=== PATIENT | female | born 1955 | race Caucasian/White ===

== ENCOUNTER → 2019-06-15 09:20 | Outpatient (BNVA) | payer MEDICARE, BC, SELFPAY | PROVIDERS: Family Provider Family Medicine; PCP Family Medicine; Visit Provider Otolaryngology | DX: R04.0 Epistaxis (principal) | CPT/HCPCS: 99212; 99214 ==

== ENCOUNTER 2020-01-18 11:04 | Outpatient (CLI) | payer MEDICARE, BC, SELFPAY ==
--- NOTE | 2020-01-18 11:08 | US_ITS ---
WS: [id number] ULTRASOUND PELVIS TECHNIQUE: Transabdominal and transvaginal. ULTRASOUND PELVIS TECHNIQUE: Transabdominal. CLINICAL INFORMATION: POSTMENOPAUSAL BLEEDING COMPARISON: None. FINDINGS: Cervix measures 3.5 cm Uterus Orientation: Anteverted. Size: 8.33,8.46 cm x 3.3 cm x 2.8 cm. Masses: None. Cervix: 3.5 cm. Endometrium: Abnormally thickened and heterogeneous Endometrium thickness: 1.4 cm. Adnexa: Neither ovary visualized Free fluid: None. Other findings: None. US/US pelvic with transvaginal IMPRESSION: 1. Thickened heterogeneous endometrium measuring 13.6 mm abnormal in a postmen opausal patient. Findings suspicious for neoplasia. Recommend further evaluatio n with hysteroscopy. 2. Neither ovary is visualized. 3. No free fluid in the cul-de-sac.
== END 2020-01-18 11:05 | disposition home or self-care (01) ==
LOC: RAD 11:04
PROVIDERS: PCP Family Medicine; Visit Provider Family Medicine
DX: N95.0 Postmenopausal bleeding (principal); R93.89 Abnormal findings on diagnostic imaging of other specified body structures
CPT/HCPCS: 76830; 76856

== ENCOUNTER → 2020-01-28 16:20 | Outpatient (BNVA) | payer MEDICARE, BC, SELFPAY | PROVIDERS: PCP Family Medicine; Visit Provider Obstetrics & Gynecology | DX: N95.0 Postmenopausal bleeding (principal) | CPT/HCPCS: 88305 ==

== ENCOUNTER 2020-02-02 13:12 | Outpatient (CLI) | payer MEDICARE, BC, SELFPAY ==
--- NOTE | 2020-02-02 13:18 | MM_ITS ---
WS: [id number] BILATERAL DIGITAL SCREENING MAMMOGRAPHY WITH CAD CLINICAL INFORMATION: SCREENING HISTORY: Screening mammogram. No current complaints. COMPARISON: April 22, 2018 TECHNIQUE: Bilateral CC and MLO views. FINDINGS: Scattered fibroglandular densities bilaterally. No suspicious focal mass, asymmetry, calcifications, or architectural distortion. No evidence of malignancy. Vascular calcification. Stable intramammary l ymph node upper outer left breast. MM/[id number] IMPRESSION: BI-RADS: 2-Benign FOLLOW UP: 1 Year Follow-up Recommend return to annual screening mammography.
== END 2020-02-02 13:13 | disposition home or self-care (01) ==
LOC: RADSHAW 13:17
PROVIDERS: PCP Family Medicine; Visit Provider Family Medicine
DX: Z12.31 Encounter for screening mammogram for malignant neoplasm of breast (principal)
CPT/HCPCS: 77067

== ENCOUNTER → 2020-03-04 13:00 | Outpatient (BNVA) | payer MEDICARE, BC, SELFPAY | PROVIDERS: PCP Family Medicine; Visit Provider Obstetrics & Gynecology | DX: Z11.59 Encounter for screening for other viral diseases (principal) | CPT/HCPCS: 87635 ==

== ENCOUNTER 2020-03-09 05:40 | Day surgery (SDC) | payer MEDICARE, BC, SELFPAY ==
[2020-03-07 10:10] VITALS: BMI 33.3
--- NOTE | 2020-03-07 10:41 | ANES.PREANE2 ---
Pre-Anesthetic Assessment Pre-Anesthetic Assessment: Height/Weight: Height 1.57 m Weight 82.554 kg Preop Diagnosis: Postmenopausal bleeding, endometrial polyp Proposed Procedure: Operation Date: 03/09/20 07:00 Proposed Procedures p Hysteroscopy with polypectomy and paracervical block 97882 51461 N95.0 N84.0(Not Applicable) - Malcolm Hancock MD s Dilation And Curettage (D&C) with Myosure 25437 N95.0 N84.0(Not Applicable) - Malcolm Hancock MD Familial anesthetic complications: None Was Beta Boom taken within 24 hours: N/A Social: Social History: No alcohol and No tobacco Exam: Pre-Anes Outpt Exam: alert, oriented x 3, clear to auscultation bilaterally and regular rate & rhythm Airway: Cervical ROM: WNL MP: 3 Dentition: False Pulmonary: Comments: hx bronchitis CV/HEM: CV/HEM: HTN GI: GI: GERD Anesthetic Plan: ASA status: 2 Anesthesia: MAC Risk of > 500 ml blood loss (7ml/kg in children): No PFSH Anesthesia PFSH: Medical History Endometrial polyp Post-menopausal bleeding Family History Family/Other Diabetes maternal aunt Other No pertinent family history Denies family history of Clotting disorder Hyperlipidemia Anesthesia complication Bleeding disorder Hypertension Stroke Social History (Updated 03/07/20 @ 07:53 by Giovanna Dickerson RN) Smoking and tobacco status: former smoker Quit status (tobacco): has quit using tobacco Former quit date comment: 40 years ago Alcohol intake: current Alcohol intake frequency: few times a week Alcohol type: beer Substance/Drug Use: never Data Anesthesia CBC & Chem 7: 03/07/20 10:25 03/07/20 10:25 Cardiac Studies: No Data to Display
[2020-03-07 10:43] LABS: Basophils # 0.1 10^3/uL (0.0-0.1); Basophils % 0.8 %; Eosinophils # 0.2 10^3/uL (0.0-0.8); Eosinophils % 2.5 %; Hematocrit 43.4 % (37.0-47.0); Lymphocytes # 3.5 10^3/uL (0.8-4.8); Lymphocytes % 45.1 %; Mean Corpuscular HGB Conc 32.3 g/dL (30.0-36.0); Mean Corpuscular Hemoglobin 30.6 pg (28.0-34.0); Mean Corpuscular Volume 94.8 fL (81-99); Mean Platelet Volume 11.1 fL (7.4-10.4); Monocytes # 0.6 10^3/uL (0.2-0.9); Monocytes % 8.2 %; Neutrophils # 3.32 10^3/uL (1.8-7.7); Neutrophils % 43.1 %; Nucleated Red Blood Cells % 0 %; Platelet Count 322 10^3/cmm (130-400); Red Blood Count 4.58 10^6/uL (4.1-5.3); Red Cell Distribution Width 11.7 % (12.1-15.1); White Blood Count 7.7 10^3/uL (4.0-10.0)
[2020-03-07 10:44] LABS: Add Urine Microscopic? NO
[2020-03-07 11:05] LABS: Urine Color Yellow (Yellow)
[2020-03-07 11:06] LABS: Alanine Aminotransferase 45 U/L (0-33); Albumin Level 4.5 g/dL (3.5-5.2); Alkaline Phosphatase 82 IU/L (35-105); Anion Gap 16.8 (5-19); Aspartate Amino Transferase 35 U/L (0-32); Bilirubin Urine Neg (Negative); Blood Urea Nitrogen 10 mg/dL (8-23); Blood Urine Neg (Negative); Calcium 9.9 mg/dL (8.5-10.5); Carbon Dioxide 25 mmol/L (22-29); Chloride 104 mmol/L (98-107); Globulin 3.1 g/dL (1.3-4.6); Glomerular Filtration Rate 123.4 mL/min (90-130); Glucose 101 mg/dL (65-115); Glucose Urine UA Norm (Normal); Ketones Urine Negative (Negative); Leukocyte Esterase Urine Negative (Negative); Nitrate Urine Negative (Negative); Osmolality Calculated 291 mOsm/kg (285-295); Potassium 4.8 mmol/L (3.5-5.1); Protein Urine Neg (Negative); Sodium 141 mmol/L (136-145); Total Bilirubin 0.3 mg/dL (0.15-1.2); Total Protein 7.6 g/dL (6.6-8.7); Urine Appearance Clear (CLEAR); Urobilinogen Urine Norm (Negative); pH Urine 6 (5-7)
[2020-03-09 06:12] VITALS: BP 160/85; PULSE 76; RESP 18; TEMP 36.3; O2SAT 97
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
[2020-03-09] MEDS: scopolamine 1.5 Patch 1 PATCH TRANSDERMA (06:26)
[2020-03-09] MEDS: lactated ringers 500 ML IV (06:26)
--- NOTE | 2020-03-09 06:55 | W.PM.OPSUD ---
Surgery/Procedure H&P Update DATE OF PROCEDURE: March 09, 2020 DATE H&P PERFORMED: 03/07/20 H&P UPDATE INFORMATION: I have reviewed H&P completed within last 30 days, I have examined patient prior to procedure and No changes to prior documentation PREOP DIAGNOSIS: Postmenopausal bleeding, endometrial polyp PLANNED PROCEDURE: Operation Date: 03/09/20 07:00 Proposed Procedures p Hysteroscopy with polypectomy and paracervical block 43225 18854 N95.0 N84.0(Not Applicable) - Malcolm Hancock MD s Dilation And Curettage (D&C) with Myosure 97634 N95.0 N84.0(Not Applicable) - Malcolm Hancock MD
--- NOTE | 2020-03-09 07:49 | PM.OP ---
Operative Report Date of procedure: March 09, 2020 Pre-op Diagnosis: Postmenopausal bleeding, endometrial polyp Post-op diagnosis: same Post-op Findings: endometrial polyp and atrophic endometrium Procedure Done: hysteroscopic polypectomy Specimens removed/disposition: endometrial polyp Pathology: endometrial polyps Surgeon: Malcolm Hancock M.D. Estimated blood loss (mL): 5 IV fluids (mL): 500 Urine output (mL): 300 Complications: none Condition: stable Disposition: PACU Brief History: 64-year-old female with postmenopausal bleeding Procedure: After informed consent, the risks included but were not limited to bleeding, infection, injury to internal organs. The patient was counseled on a possible laparotomy and on the potential need for hysterectomy. The patient expressed understanding of the risks involved, all questions were answered, and the patient consented to the procedure. The patient was taken to the operating room where general anesthesia was administered. She was placed in the dorsal lithotomy position and prepped and draped in sterile fashion. A time out procedure was performed. The patient was examined under anesthesia and found to have a normal uterus with normal adnexa. A sterile weight speculum was placed in the vagina. The uterus was then gently sounded to 7 cm, and the cervix was dilated. The 0 degrees MyoSure hysteroscope was advanced gently to the uterine fundus while visualizing the monitor. Survey of the uterine cavity showed: fundal endometrial polyp, the fundus shows atrophic endometrium; left ostium was visualized, and lateral wall with atrophic endometrium; right ostium visualized, and lateral wall with atrophic endometrium; anterior and posterior meraz are with atrophic endometrium; endocervical canal is normal. The MyoSure device was advanced and the direct visualization the polyp was morcellated without complication. At the end of morcellation the fluid deficit was 200 mL and was estimated at approximately 50 mL were on the floor. There was minimal bleeding noted and the tenaculum removed with goad hemostasis noted. The patient tolerated the procedure well. The patient was taken to the recovery area in stable condition.
[2020-03-09 07:55] VITALS: BP 96/61; PULSE 105; RESP 20; TEMP 36.1; O2SAT 97
[2020-03-09 08:00] VITALS: BP 112/68; PULSE 99; RESP 14; O2SAT 95
[2020-03-09 08:05] VITALS: BP 96/57; PULSE 96; RESP 16; TEMP 36.9; O2SAT 96
[2020-03-09 08:11] VITALS: BP 123/76; PULSE 96; RESP 18; TEMP 36.4; O2SAT 98
[2020-03-09 08:35] VITALS: BP 122/73; PULSE 88; RESP 18; O2SAT 97
--- NOTE | 2020-03-09 08:50 | ANE.PACU2 ---
Inpatient post-anesthesia follow up: Airway intact: Yes Vital signs: Temperature 97.6 F Pulse Rate 88 Respiratory Rate 18 Blood Pressure 122/73 Pulse Oximetry 97 Oxygen Delivery Me thod Room Air Oxygen Flow Rate Fraction of Inspir ed Oxygen Hydration adequate: Yes Nausea and vomiting: No Pain level: 2 Mental status: Baseline
== END 2020-03-09 08:50 | disposition home or self-care (01) ==
PROVIDERS: PCP Family Medicine; Visit Provider Obstetrics & Gynecology
PROC: 0UJD8ZZ Inspection of Uterus and Cervix, Via Natural or Artificial Opening Endoscopic (ICD-10-PCS; CPT 58555; principal; 2020-03-09 07:00)
PROC: (CPT 58120; 2020-03-09 07:00)
DX: N95.0 Postmenopausal bleeding (principal); N84.0 Polyp of corpus uteri; Z87.891 Personal history of nicotine dependence
CPT/HCPCS: 58558; 12345; 36415; 80053; 81003; 85025; 86850; 86900; 88305; J0690; J1100; J1885; J2405; J3010; J3490

== ENCOUNTER 2021-06-12 11:26 | Outpatient (CLI) | payer MEDICARE, BC, SELFPAY ==
--- NOTE | 2021-06-12 11:35 | MM_ITS ---
WS: [id number] BILATERAL SCREENING DIGITAL MAMMOGRAM WITH CAD HISTORY: SCREENING COMPARISON: 02/02/2020, 04/22/2018 Bilateral CC and MLO views submitted. Computer aided detection analyzed. Breast composition: There are scattered areas of fibroglandular density. No suspicious masses, microc alcifications or architectural distortion. Bilateral vascular calcifications. Bilateral intramammary lymph nodes in the upper-outer quadrants. MM/[id number] IMPRESSION: BI-RADS: 2-Benign FOLLOW UP: 1 Year Follow-up
== END 2021-06-12 11:27 | disposition home or self-care (01) ==
LOC: RADSHAW 11:33
PROVIDERS: PCP Family Medicine; Visit Provider Family Medicine
DX: Z12.31 Encounter for screening mammogram for malignant neoplasm of breast (principal)
CPT/HCPCS: 77067

== ENCOUNTER 2022-08-30 10:32 | Outpatient (CLI) | payer MEDICARE, BC, SELFPAY ==
--- NOTE | 2022-08-30 10:58 | MM_ITS ---
WS: [id number] BILATERAL SCREENING DIGITAL TOMOSYNTHESIS MAMMOGRAM WITH CAD HISTORY: SCREENING COMPARISON: 06/12/2021, 02/02/2020 Bilateral CC and MLO views with tomosynthesis and synthetic mammography submitted. Computer aided det ection analyzed. Breast composition: The breasts are heterogeneously dense, which may obscure small masses. No suspici ous masses, microcalcifications or architectural distortion. Dense bilateral breast arterial calcific ations. Long-term stability of bilateral breast masses which are probably lymph nodes. MM/[id number] IMPRESSION: BI-RADS: 2-Benign FOLLOW UP: 1 Year Follow-up
== END 2022-08-30 10:33 | disposition home or self-care (01) ==
LOC: RAD 10:36
PROVIDERS: PCP Family Medicine; Visit Provider Family Medicine
DX: Z12.31 Encounter for screening mammogram for malignant neoplasm of breast (principal)
CPT/HCPCS: 77063; 77067

== ENCOUNTER 2023-11-21 10:34 | Outpatient (CLI) | payer MEDICARE, BC, SELFPAY ==
--- NOTE | 2023-11-21 10:46 | MM_ITS ---
WS: [id number] BILATERAL SCREENING DIGITAL TOMOSYNTHESIS MAMMOGRAM WITH CAD HISTORY: SCREENING COMPARISON: 08/30/2022, 06/12/2021 and 02/02/2020 Bilateral CC and MLO views with tomosynthesis and synthetic mammography submitted. Computer aided det ection analyzed. Breast composition: There are scattered areas of fibroglandular density. No suspicious masses, microc alcifications or architectural distortion. Extensive breast arterial calcifications. Stable 8 mm mass in the upper outer quadrant LEFT breast is probably a lymph node. No new mass or calcification. MM/[id number] IMPRESSION: BI-RADS: 2-Benign FOLLOW UP: 1 Year Follow-up
--- NOTE | 2023-11-21 11:20 | XR_ITS ---
WS: [id number] SCREENING DEXA SCAN [employer] CLINICAL INFORMATION: ASYMPTOMATIC MENOPAUSAL STATE COMPARISON: None. FINDINGS: The L1-L4 bone mineral density measures 1.089 g/cm2. This corresponds to a T score score of -0.8 and Z score of 0.5. Left femoral neck bone mineral density measures 0.922 g/cm2. This corresponds to a T score of -0.7 an d Z score of 0.5. Right femoral neck bone mineral density measures 0.980 g/cm2. This corresponds to a T score -0.2of an d Z score of 0.9. Mean femoral neck bone mineral density measures 0.951 g/cm2. This corresponds to a T score of -0.4 an d Z score of 0.7. XR/XR DEXA axial skeleton* [id number] IMPRESSION: Normal bone mineralization. Patient's FRAX calculated 10 year probability for major osteoporotic fracture i s 10.8% and osteoporotic hip fracture is 1.7%.
== END 2023-11-21 10:35 | disposition home or self-care (01) ==
PROVIDERS: PCP Family Medicine; Visit Provider Family Medicine
DX: Z12.31 Encounter for screening mammogram for malignant neoplasm of breast (principal); R92.323 Mammographic fibroglandular density, bilateral breasts; R92.1 Mammographic calcification found on diagnostic imaging of breast; N63.21 Unspecified lump in the left breast, upper outer quadrant; Z78.0 Asymptomatic menopausal state
CPT/HCPCS: 77063; 77067; 77080

== ENCOUNTER 2024-11-30 09:30 | Outpatient (CLI) | payer MEDICARE, BC, SELFPAY ==
--- NOTE | 2024-11-30 09:36 | MM_ITS ---
WS: [id number] BILATERAL 3D TOMOSYNTHESIS DIGITAL SCREENING MAMMOGRAPHY WITH CAD CLINICAL INFORMATION: SCREENING HISTORY: Screening mammogram. No current complaints. COMPARISON: 11/21/2023 TECHNIQUE: Bilateral CC and MLO views. FINDINGS: Scattered fibroglandular densities bilaterally. No suspicious focal mass, asymmetry, calcifications, or architectural distortion. No evidence of malignancy. Vascular calcification. Bilateral nodular densities are stable. MM/MM scr tomosynthesis [id number] IMPRESSION: DENSITY: There are scattered areas of fibroglandular density. BI-RADS: 2 - Benign. FOLLOW UP: 1 Year Follow-up Recommend return to annual screening mammography.
== END 2024-11-30 09:31 | disposition home or self-care (01) ==
LOC: RAD 09:31
PROVIDERS: PCP Nurse Practitioner Family; Visit Provider Family Medicine
DX: Z12.31 Encounter for screening mammogram for malignant neoplasm of breast (principal); R92.323 Mammographic fibroglandular density, bilateral breasts; R92.1 Mammographic calcification found on diagnostic imaging of breast
CPT/HCPCS: 77063; 77067